=== PATIENT | female | born 1950 | race Caucasian/White ===

== ENCOUNTER 2018-03-24 18:37 | Emergency (ER) | payer MEDICAID, OTHER ==
[~2018-03-24] VITALS: Ht 175.3 cm; Wt 81.2 kg
[2018-03-24 18:37] VITALS: BP 161/79
[2018-03-24] MEDS ORDERED: KETOROLAC TROMETHAMINE INJ 30 MG/ML VIAL ONE (19:47)
[2018-03-24] MEDS ORDERED: KETOROLAC TROMETHAMINE INJ 60 MG/2 ML VIAL IM ONE (20:00)
== END 2018-03-24 20:15 | disposition home or self-care (01) ==
LOC: ER 18:38
DX: L03.113 Cellulitis of right upper limb (principal); M79.641 Pain in right hand; Z88.0 Allergy status to penicillin; Z88.2 Allergy status to sulfonamides; F17.200 Nicotine dependence, unspecified, uncomplicated
CPT/HCPCS: 29125; 96372; 99283; A4606; J1885; Z7610

== ENCOUNTER 2021-05-20 10:53 | Emergency (ER) | payer OTHER ==
[~2021-05-20] VITALS: Ht 175.3 cm; Wt 79.4 kg
[2021-05-20 11:04] VITALS: BP 133/80
[2021-05-20] MEDS ORDERED: DIAZ5TAB PO (11:27)
[2021-05-20] MEDS ORDERED: KETOROLAC TROMETHAMINE INJ 60 MG/2 ML VIAL IM ONE ×2 (11:30→11:33)
--- NOTE | 2021-05-20 11:30 | NUR ---
Patient awake alert non distress continue to monitor .
--- NOTE | 2021-05-20 11:43 | NUR ---
Given toradol 60 Mgs IM Rt upper buttock tolearted well .
--- NOTE | 2021-05-20 11:45 | NUR ---
Patient Dc home instructiobn given agrees to see PMD in AM .
--- NOTE | 2021-05-20 11:47 | NUR ---
Patient discharged to home in stable condition. Written and verbal after care instructions given. Patient verbalizes understanding of instruction.
== END 2021-05-20 11:47 | disposition home or self-care (01) ==
LOC: ER 10:58
DX: M54.42 Lumbago with sciatica, left side (principal); M54.41 Lumbago with sciatica, right side; F17.200 Nicotine dependence, unspecified, uncomplicated; Z88.0 Allergy status to penicillin; Z88.2 Allergy status to sulfonamides
CPT/HCPCS: 96372; 99283; J1885

== ENCOUNTER 2022-06-09 12:43 | Emergency (ER) | payer OTHER ==
[~2022-06-09] VITALS: Ht 172.7 cm; Wt 79.4 kg
[~2022-06-09 12:43] MED LIST: DIAZ5TAB PO
[2022-06-09 13:35] VITALS: BP 135/71
--- NOTE | 2022-06-09 13:47 | NUR ---
+swelling/redness on Right ankle able to wakl/limp short distances
[2022-06-09 15:07] LABS: BASOPHILS % (AUTO) 0.5 % (0.0-2.0); EOSINOPHILS % (AUTO) 0.9 % (0.0-6.0); HEMATOCRIT 41 % (33-45); HEMOGLOBIN 13.9 g/dL (11.5-14.8); LYMPHOCYTES # (AUTO) 1.9 K/uL (0.8-4.8); LYMPHOCYTES % (AUTO) 25.5 % (20.0-44.0); MEAN CORPUSCULAR HGB CONC 34 g/dl (31.0-36.0); MEAN CORPUSCULAR VOLUME 92 fL (82-100); MONOCYTES # (AUTO) 0.4 K/uL (0.1-1.30); MONOCYTES % (AUTO) 5.9 % (2.0-12.0); NEUTROPHILS # (AUTO) 4.9 K/uL (1.8-8.9); NEUTROPHILS % (AUTO) 67.2 % (43.0-81.0); PLATELET COUNT (AUTO) 290 K/uL (150-450); RED BLOOD CELL COUNT(AUTO) 4.43 MIL/uL (4.0-5.2); WHITE BLOOD COUNT (AUTO) 7.3 K/uL (4.3-11.0)
[2022-06-09 15:34] LABS: CALCIUM, SERUM 9.1 mg/dL (8.5-10.1); CREATININE 0.6 mg/dL (0.6-1.3); POTASSIUM 3.6 mmol/L (3.5-5.1)
[2022-06-09 15:38] LABS: ALBUMIN 3.7 g/dL (3.4-5.0); BILIRUBIN,TOTAL 0.3 mg/dL (0.2-1.0)
--- NOTE | 2022-06-09 16:00 | NUR ---
Pt mo longer in room. Eloped
[2022-06-09 19:13] LABS: URIC ACID 4.7 mg/dL (2.6-7.2)
== END 2022-06-09 16:01 | disposition home or self-care (01) ==
LOC: ER 12:51
DX: M25.572 Pain in left ankle and joints of left foot (principal); F32.A Depression, unspecified; F17.200 Nicotine dependence, unspecified, uncomplicated; Z88.0 Allergy status to penicillin; Z88.2 Allergy status to sulfonamides; Z79.899 Other long term (current) drug therapy
CPT/HCPCS: 36415; 73610-TC; 80053-TC; 84550-TC; 85025-TC

== ENCOUNTER 2024-06-15 17:23 | Emergency (ER) | payer OTHER, MEDICAID ==
[~2024-06-15] VITALS: Ht 170.2 cm; Wt 54.0 kg
[2024-06-15 18:22] LABS: BASOPHILS % (AUTO) 0.3 % (0.0-2.0); EOSINOPHILS % (AUTO) 0.1 % (0.0-6.0); HEMATOCRIT 51 % (33-45); HEMOGLOBIN 17.3 g/dL (11.5-14.8); LYMPHOCYTES # (AUTO) 1.3 K/uL (0.8-4.8); LYMPHOCYTES % (AUTO) 10.4 % (20.0-44.0); MEAN CORPUSCULAR HEMOGLOBIN 33 PG (26.0-33.0); MEAN CORPUSCULAR HGB CONC 34 g/dl (31.0-36.0); MEAN CORPUSCULAR VOLUME 97 fL (82-100); MONOCYTES # (AUTO) 0.7 K/uL (0.1-1.30); MONOCYTES % (AUTO) 5.2 % (2.0-12.0); NEUTROPHILS # (AUTO) 10.6 K/uL (1.8-8.9); PLATELET COUNT (AUTO) 427 K/uL (150-450); RED BLOOD CELL COUNT(AUTO) 5.22 MIL/uL (4.0-5.2); RED CELL DISTRIBUTION WIDTH 14.6 % (11.5-15.0); WHITE BLOOD COUNT (AUTO) 12.7 K/uL (4.3-11.0)
[2024-06-15 18:36] LABS: ALANINE AMINOTRANSFERASE 58 U/L (12-78); ALBUMIN 3.6 g/dL (3.4-5.0); ALKALINE PHOSPHATASE 155 U/L (46-116); ASPARTATE AMINOTRANSFERASE 39 U/L (15-37); BILIRUBIN,DIRECT 0.4 mg/dL (0.0-0.2); BILIRUBIN,TOTAL 0.9 mg/dL (0.2-1.0); CALCIUM, SERUM 10.3 mg/dL (8.5-10.1); CARBON DIOXIDE 29 mmol/L (21-32); CHLORIDE 92 mmol/L (98-107); CREATININE 1.1 mg/dL (0.6-1.3); GLUCOSE 195 mg/dL (74-106); NT-PRO BNP 722 pg/mL (0-125); SODIUM SERUM 129 mmol/L (136-145); TOTAL PROTEIN, SERUM 7.3 g/dL (6.4-8.2); UREA NITROGEN, BLOOD 27 mg/dL (7-18)
[2024-06-15] MEDS ORDERED: ONDANSETRON HCL 4 MG/5 ML SOLUTION ONE (18:38)
[2024-06-15] MEDS: FAMOTIDINE/PF INJ 20 MG/2 ML VIAL IV ONE (18:38)
[2024-06-15] MEDS: IV NS 0.9% 1,000 ML BAG IV ONE (18:38)
[2024-06-15] MEDS ORDERED: FAMOTIDINE/PF INJ 20 MG/2 ML VIAL IV ONE (18:38)
[2024-06-15] MEDS: ONDANSETRON HCL/PF 4 MG/2 ML VIAL IVP ONE (18:39)
[2024-06-15 18:40] LABS: POTASSIUM 2.3 mmol/L (3.5-5.1)
[2024-06-15] MEDS ORDERED: TRAM50TA PO (19:01)
[2024-06-15] MEDS ORDERED: SIMV-46 PO (19:01)
[2024-06-15] MEDS ORDERED: TRAZ-257 PO (19:01)
[2024-06-15] MEDS ORDERED: DULO60CA64 PO (19:01)
[2024-06-15] MEDS: POTASSIUM CL. PREMIX PERIPHER. 50 ML IV SCH (19:14)
[2024-06-15] MEDS ORDERED: POTASSIUM CL. PREMIX PERIPHER. 50 ML ONE ×2 (21:23→22:44)
[2024-06-15] MEDS ORDERED: POTASSIUM CHLORIDE 20 MEQ TAB.PRT.SR PO ONE (22:44)
[2024-06-15] MEDS: POTASSIUM CHLORIDE 20 MEQ TAB.PRT.SR PO ONE (22:50)
[2024-06-15 23:20] LABS: CALCIUM, SERUM 8.2 mg/dL (8.5-10.1); CARBON DIOXIDE 25 mmol/L (21-32); CHLORIDE 100 mmol/L (98-107); CREATININE 0.7 mg/dL (0.6-1.3); GLUCOSE 105 mg/dL (74-106); POTASSIUM 3.1 mmol/L (3.5-5.1); SODIUM SERUM 133 mmol/L (136-145); UREA NITROGEN, BLOOD 23 mg/dL (7-18)
[2024-06-16 00:28] VITALS: BP 124/77; TEMP 99; O2SAT 100
== END 2024-06-16 02:15 | disposition short-term general hospital (02) ==
LOC: ER 17:24
DX: K85.90 Acute pancreatitis without necrosis or infection, unspecified (principal); R11.2 Nausea with vomiting, unspecified; F32.A Depression, unspecified; F41.9 Anxiety disorder, unspecified; F17.200 Nicotine dependence, unspecified, uncomplicated; Z88.0 Allergy status to penicillin; Z88.2 Allergy status to sulfonamides; Z60.2 Problems related to living alone; Z20.822 Contact with and (suspected) exposure to COVID-19
CPT/HCPCS: 99291; 74176; 96365; 96366; 96361; 87426; 93005 ×2; 71045; 85025; 80048 ×2; 83690; 80076; 36415; 84484; 83880; 82962; J3490; J3480 ×4; Q0162